=== PATIENT | female | born 1935 | race Caucasian/White ===

== ENCOUNTER 2017-08-28 11:03 | Day surgery (SDC) | payer OTHER ==
[2017-08-28] MEDS ORDERED: MIDAZOLAM HCL 5 MG/ML VIAL (1 ML) ONE (12:00)
[2017-08-28] MEDS ORDERED: VANCOMYCIN 1000 MG/NS 250 ML IV SCH ×2 (12:00)
[2017-08-28] MEDS ORDERED: POVIDONE IODINE 5% (ANTISEPSIS KIT) 4 APPLICATIONS EACH NARE SCH (12:00)
[2017-08-28] MEDS ORDERED: CHLORHEXIDINE GLUCONATE 2 % 1 PACK (2 CLOTHS) TOPICAL SCH (12:00)
[2017-08-28] MEDS ORDERED: MUPIROCIN 2% OINT 1 APPLIC/GM SYR NASAL SCH (12:00)
[2017-08-28] MEDS ORDERED: NS 1000 ML IV SCH (12:00)
[2017-08-28] MEDS ORDERED: DIALCAP PO (12:17)
[2017-08-28] MEDS ORDERED: MULTTAB67 PO (12:17)
[2017-08-28] MEDS ORDERED: SEVEL800 PO ×2 (12:17→12:18)
[2017-08-28] MEDS ORDERED: TOPR50TA PO (12:17)
[2017-08-28] MEDS ORDERED: ASPI-183 PO (12:17)
[2017-08-28] MEDS ORDERED: FURO40TA PO (12:17)
[2017-08-28] MEDS ORDERED: VITATAB43 PO (12:18)
--- NOTE | 2017-08-28 12:47 | MA ---
cc: TEOFILO TALAVERA MD DATE 08/28/2017 PROCEDURE PERFORMED Loop recorder insertion. HISTORY Suspect atrial fibrillation. PROCEDURE PERFORMED 1. 15 minutes of moderate IV sedation. 2. Loop recorder insertion. DESCRIPTION OF THE PROCEDURE The patient was brought to the DOC unit in the postabsorptive state after informed consent was obtained. 2 mg of Versed and 25 mcg fentanyl were given for moderate IV sedation. Next, a [employer] LINQ loop recorder was inserted subcutaneously in the left chest. The patient tolerated the procedure well without any apparent complications. Tachybrady pause and atrial fibrillation detection was enabled. The initial R-wave was 0.36 mV. The serial number was [id number]. MD NISHA Varela/JAIDA /12:13 PM /12:20 PM
== END 2017-08-28 13:46 | disposition home or self-care (01) ==
LOC: HDOC 11:03 → HDIC 11:04 → HDOC 13:46
PROVIDERS: ATTEND Nuclear Medicine Nuclear Cardiology
DX: I48.2 Chronic atrial fibrillation (principal)
CPT/HCPCS: 33282; 99152; C1764; J2250; J3010; J3370; J7030; J7050